=== PATIENT | female | born 1950 | race Caucasian/White ===

== ENCOUNTER 2018-08-23 07:31 | Day surgery (SDC) | payer MEDICARE ==
[~2018-08-23] VITALS: Ht 160 cm; Wt 70.3 kg
[~2018-08-23 07:31] MED LIST: CVS LUTEIN 401 EACH PO; EYE HEALTH ADU1 EACH PO; Lutein 15 MG S1 EACH PO; STRESS FORMULA1 EAC1 PO
--- NOTE | 2018-08-23 07:59 | NUR ---
Ambulatory in Day Surgery History, Chart, Medications and Allergies reviewed before start of procedure.Lungs clear T/O to Auscultation. Patient confirms NPO status and agrees with scheduled surgery. Patient reports completing Chlorhexadine shower X2 prior to admission to hospital.Surgical site prepped with 2% Chlorhexidine cloth wipe.
--- NOTE | 2018-08-23 13:07 | NUR ---
PT STATES SHE IS FEELING A LITTLE BETTER AFTER MEDICATION. REQ TO REST FOR A WHILE LONGER PRIOR TO DISCHARGE. FAMILY UPDATED. VSS.
--- NOTE | 2018-08-23 13:09 | NUR ---
PRESCRIPTION FOR ODT ZOFRAN FROM DR. ABDIAS BRUNNER.
--- NOTE | 2018-08-23 14:18 | NUR ---
FEELING MUCH BETTER, WENT FAMILY AT BEDSIDE. WENT OVER DC INSTRUCTIONS WITH PT/FAMILY. VERBALIZED UNDERSTANDING. DRESSED WITH ASSIST. Discharge instructions reviewed with patient. Patient verbalizes understanding. Copy given to patient to take home. Discharged via wheelchair to private car for ride home.
== END 2018-08-23 22:42 | disposition home or self-care (01) ==
LOC: ORSCMMR 07:31 → ORD 09:00 → ORSCMMR 22:42
PROVIDERS: Surgery
PROC: B5131ZA Fluoroscopy of Right Jugular Veins using Low Osmolar Contrast, Guidance (ICD-10-PCS; principal; 2018-08-23 09:00)
PROC: 05HM33Z Insertion of Infusion Device into Right Internal Jugular Vein, Percutaneous Approach (ICD-10-PCS; principal; 2018-08-23 09:00)
DX: C50.512 Malignant neoplasm of lower-outer quadrant of left female breast (principal)
CPT/HCPCS: 77001; 93005; 93010; C1788; J0690; J1100; J1642; J2250; J2405; J2765; J3010; J7120

== ENCOUNTER 2018-09-02 09:09 | Day surgery (SDC) | payer MEDICARE ==
[2018-09-02] MEDS ORDERED: LIDOCAINE-PRIL1 EACH TOP (10:22)
[2018-09-02] MEDS ORDERED: METO10 PO (10:22)
[2018-09-02] MEDS ORDERED: ONDA8 PO (10:22)
[2018-09-02] MEDS ORDERED: DEXA4 PO (10:23)
== END 2018-09-02 10:32 | disposition home or self-care (01) ==
LOC: ATC 09:09
DX: C50.512 Malignant neoplasm of lower-outer quadrant of left female breast (principal); Z17.0 Estrogen receptor positive status [ER+]
CPT/HCPCS: 96360; J1642; J7030

== ENCOUNTER 2018-11-23 21:44 | Emergency (ER) | payer MEDICARE ==
[~2018-11-23] VITALS: Ht 160 cm; Wt 71.2 kg
[~2018-11-23 21:44] MED LIST changes: +DEXA4 PO; +LIDOCAINE-PRIL1 EACH TOP; +METO10 PO; +ONDA8 PO
[2018-11-23] MEDS ORDERED: LEVO750 PO (22:36)
[2018-11-23 23:33] LABS: Source, Urine Clean Catch
[2018-11-23 23:36] LABS: BASOPHILS ABSOLUTE AUTO 0.01 K/mm3 (0.00-0.23); BASOPHILS PERCENT AUTO 0 % (0-2); EOSINOPHILS ABSOLUTE AUTO 0.03 K/mm3 (0.00-0.68); EOSINOPHILS PERCENT AUTO 1 % (0-6); Hematocrit 28.4 % (33.0-51.0); Hemoglobin 9.6 g/dL (11.5-16.0); IMMATURE GRAN ABSOLUTE AUTO 0.01 K/mm3 (0.00-0.10); IMMATURE GRAN PERCENT AUTO 0 % (0-1); LYMPHOCYTES ABSOLUTE AUTO 0.69 K/mm3 (0.84-5.20); LYMPHOCYTES PERCENT AUTO 19 % (21-46); MONOCYTES ABSOLUTE AUTO 0.27 K/mm3 (0.16-1.47); MONOCYTES PERCENT AUTO 7 % (4-13); Mean Corpuscular HGB 32.1 pg (26.0-34.0); Mean Corpuscular HGB Conc 33.8 g/dL (31.5-36.5); Mean Corpuscular Volume 95 fL (80-100); Mean Platelet Volume 8.7 fL (9.1-12.4); NEUTROPHILS ABSOLUTE AUTO 2.68 K/mm3 (1.96-9.15); NEUTROPHILS PERCENT AUTO 73 % (41-73); Platelet Count 193 K/mm3 (150-400); RDW Coefficient Variation 15.9 % (11.7-14.2); RDW Standard Deviation 55.4 fL (35.1-46.3); Red Blood Cell Count 2.99 M/mm3 (3.80-5.20); White Blood Cell Count 3.69 K/mm3 (4.00-11.30)
[2018-11-23 23:42] LABS: Appearance, Urine Clear (Clear); Bilirubin, Urine Neg (Neg); Blood, Urine Neg (Neg); Color, Urine Pale Yellow (P-Yellow); Glucose Qualitative, Urine Neg (Neg); Ketones, Urine Neg (Neg); Leukocyte Esterase, Urine Neg (Neg); Nitrite, Urine Neg (Neg); Protein, Urine Neg (Neg); Urobilinogen, Urine NORM (Normal); pH, Urine 6.5 (5.0-8.0)
[2018-11-23 23:54] LABS: Alanine Aminotransfer (ALT/SGP 35 U/L (12-78); Albumin, Blood 3.5 g/dL (3.4-5.0); Albumin/Globulin Ratio 1.2 (0.8-1.8); Alk Phos 119 U/L (50-136); Anion Gap 7 mmol/L (6-16); Aspartate Aminotrans (AST/SGOT 19 U/L (12-37); Bilirubin, Total 0.4 mg/dL (0.1-1.0); Blood Urea Nitrogen 15 mg/dL (8-24); Bun/Creatinine Ratio 22.8 (12.0-20.0); CO2, Blood 25 mmol/L (21-32); Calcium, Blood 8.6 mg/dL (8.5-10.1); Chloride, Blood 106 mmol/L (98-108); Creatinine, Blood 0.66 mg/dL (0.40-1.00); Globulin, Blood 2.8 g/dL (2.2-4.0); Glomerular Filtration Rate >60 (60-); Glucose, Blood 99 mg/dL (70-99); Potassium, Blood 3.7 mmol/L (3.5-5.5); Sodium, Blood 138 mmol/L (136-145); Total Protein, Blood 6.3 g/dL (6.4-8.2)
[2018-11-24 00:15] LABS: Influenza A Negative (NEGATIVE); Influenza B Negative (NEGATIVE)
== END 2018-11-24 01:25 | disposition home or self-care (01) ==
LOC: ER 21:44
PROVIDERS: Emergency Medicine
DX: C50.919 Malignant neoplasm of unspecified site of unspecified female breast (principal); Z91.040 Latex allergy status; Z88.2 Allergy status to sulfonamides; Z88.8 Allergy status to other drugs, medicaments and biological substances; Z91.018 Allergy to other foods; Z91.041 Radiographic dye allergy status; Z79.899 Other long term (current) drug therapy; Z79.52 Long term (current) use of systemic steroids
CPT/HCPCS: 71046; 80053; 81003; 85025; 87804; 99283-25

== ENCOUNTER 2019-02-09 08:21 | Day surgery (SDC) | payer MEDICARE ==
[~2019-02-09 08:21] MED LIST changes: +LEVO750 PO
[2019-03-11] MEDS ORDERED: OMEP20ER PO (13:40)
== END 2019-02-09 23:22 | disposition home or self-care (01) ==
LOC: MOI US 08:21
PROC: BH41ZZZ Ultrasonography of Left Breast (ICD-10-PCS; principal; 2019-02-09)
PROC: BH47ZZZ Ultrasonography of Upper Extremity (ICD-10-PCS; 2019-02-09)
DX: C50.512 Malignant neoplasm of lower-outer quadrant of left female breast (principal); C77.3 Secondary and unspecified malignant neoplasm of axilla and upper limb lymph nodes
CPT/HCPCS: 19285; 19286; 77065; G0279

== ENCOUNTER 2019-02-16 07:50 | Day surgery (SDC) | payer MEDICARE ==
[~2019-02-16] VITALS: Ht 160 cm; Wt 70.8 kg
[2019-02-16] MEDS ORDERED: GABA300 PO (10:18)
--- NOTE | 2019-02-16 10:37 | NUR ---
02/16/19 Claudy Jo LATE ENTRY-PATIENT WENT TO [facility] AND PATIENT DID NOT GET HERE UNTIL 15 MINUTES BEFORE PROCEDURE START. PATIENT COULD NOT GET HER RING OFF OF LEFT HAND BUT STAFF WAS ABLE TO GET IF OFF WITH STRING. SMALL CUT ON LEFT RING FINGER FROM RING REMOVAL. RING GIVEN TO .
--- NOTE | 2019-02-16 14:35 | NUR ---
02/16/19 1435 Nathalia Verma PT. OPENS EYES TO VOICE & THEN RIGHT BACK TO SLEEP. ORAL AIRWAY REMOVED 1434. WHEN ORAL AIRWAY REMOVED PT. LOOK LIKE SHE WAS GAGGING, PT. ORALLY SUCTIONED & THEN PT. BACK TO SLEEP.
--- NOTE | 2019-02-16 16:07 | NUR ---
02/16/19 1607 Nathalia Verma PT. VERBALIZES HAVING LEFT BREAST NIPPLE PAIN. BREAST BINDER INTACT. NO DRAINAGE ON GAUZE OBSERVED. HENRY DRAIN, DRAINING BRIGHT RED DRAINGE. NAUSEA GONE. WARM BLANKET GIVEN TO PT. ICE CHIPS ALSO AT PT. SIDE.
[2019-03-11] MEDS ORDERED: OMEP20ER PO (13:40)
== END 2019-02-16 19:09 | disposition home or self-care (01) ==
LOC: ORSCSDS 07:50 → NM 09:00 → RAD 10:15 → ORSCSDS 19:09
PROVIDERS: Surgery
PROC: 0HBU0ZZ Excision of Left Breast, Open Approach (ICD-10-PCS; principal; 2019-02-16 10:00)
PROC: 07B60ZX Excision of Left Axillary Lymphatic, Open Approach, Diagnostic (ICD-10-PCS; principal; 2019-02-16 10:00)
DX: C50.512 Malignant neoplasm of lower-outer quadrant of left female breast (principal); C77.3 Secondary and unspecified malignant neoplasm of axilla and upper limb lymph nodes
CPT/HCPCS: 38792; 76098; 88305; 88307; 88331; A9520; J0690; J1642; J2250; J2405; J2704; J2765; J3010; J7120; Q9968

== ENCOUNTER 2019-03-13 05:57 | Day surgery (SDC) | payer MEDICARE ==
[~2019-03-13] VITALS: Ht 157.5 cm; Wt 71.5 kg
[~2019-03-13 05:57] MED LIST changes: +GABA300 PO; +OMEP20ER PO
--- NOTE | 2019-03-13 07:31 | NUR ---
0630- History, Chart, Medications and Allergies reviewed before start of procedure. Patient confirms NPO status and agrees with scheduled surgery.
--- NOTE | 2019-03-13 10:09 | NUR ---
DISCUSSED PLAN TO ACCESS AND FLUSH MEDIPORT AT THIS VISIT SO THAT PATIENT CAN CANCEL HER [facility] APPOINTMENT FOR FLUSH COMING UP. DR CALERO WROTE AN ORDER, OK TO FLUSH. WILL FLUSH WITH 5 ML OF 100 UNITS/ML HEPARIN AFTER ACCESSING. SAMMIE JEFFREY RN ASSUMING CARE OF PATIENT, REPORT GIVEN.
--- NOTE | 2019-03-13 10:54 | NUR ---
PORT ACCESS THE PATIENT'S PORT WAS ACCESSED AND FLUSHED AND HEPARINE, 100 UNITS PER ML, WAS PUT INTO THE PORT AND IT THEN DEACCESSED. THE PATIENT TOLERATED IT WELL.
--- NOTE | 2019-03-13 11:15 | NUR ---
Patient up to Ambulate independently. Gait steady. Discharge instructions reviewed with patient. Patient verbalizes understanding. Copy given to patient to take home. Patient States Post-Procedure ride home has been arranged. Discharged via wheelchair to private car for ride home. ALL BELONGINGS RETURNED TO PATIENT. BREAST BINDER STRAPS SENT HOME WITH PATIENT PACKET.
== END 2019-03-13 22:46 | disposition home or self-care (01) ==
LOC: ORSCMMR 05:57 → ORD 07:30 → ORSCMMR 22:46
PROVIDERS: Surgery
PROC: 0HBU0ZZ Excision of Left Breast, Open Approach (ICD-10-PCS; principal; 2019-03-13 07:30)
DX: C50.512 Malignant neoplasm of lower-outer quadrant of left female breast (principal); C77.3 Secondary and unspecified malignant neoplasm of axilla and upper limb lymph nodes; K21.9 Gastro-esophageal reflux disease without esophagitis; Z79.899 Other long term (current) drug therapy
CPT/HCPCS: 88307; J0690; J1100; J1642; J2405; J2704; J3010; J7120

== ENCOUNTER 2020-08-06 08:45 | Day surgery (SDC) | payer MEDICARE ==
[~2020-08-06] VITALS: Ht 160 cm; Wt 66.2 kg
[~2020-08-06 08:45] MED LIST changes: +ANAS1 PO; +EYE CAPS PO
[2020-08-06] MEDS ORDERED: HYDCHL25 PO (09:01)
[2020-08-06] MEDS ORDERED: LETR2.5 PO (09:02)
--- NOTE | 2020-08-06 09:25 | NUR ---
Ambulatory in Day Surgery History, Chart, Medications and Allergies reviewed before start of procedure. Lungs clear T/O to Auscultation. Pre-Op teaching done. Pt verbalizes understanding.
--- NOTE | 2020-08-06 17:55 | NUR ---
KAIDEN PAD CHANGED X2 SINCE ARRIVAL FROM PACU. SMALL AMOUNT SEROSANGUINOUS DRAINAGE. PT WITH SLIGHT NAUSEA. OOB X1 AND INCREASE IN NAUSEA AND REPORT HEAD FELT "FULL" WITH ACTIVITY
--- NOTE | 2020-08-06 18:15 | NUR ---
SPOKE WITH DR SOLANGE LUIS REGARDING PT. PER DR LUIS PLAN WILL BE FOR PATIENT TO REMAIN HERE OVERNIGHT AND WILL BE SEEN IN AM. SPOKE WITH PATIENT AND HER SON REGARDING THIS PLAN
--- NOTE | 2020-08-07 06:43 | NUR ---
SUMMARY PT VERB MINIMAL PAIN TONIGHT.MOVES WELL IN BED. WATSON PATENT OF CLR YELLOW THIS AM. PT TOLERATING PO.SCANT VAG BLEED.
--- NOTE | 2020-08-07 13:37 | NUR ---
CALLED DR LUIS'S OFFICE TO REQUEST PRESCRIPTION FOR ZOFRAN.
[2020-08-07] MEDS ORDERED: ACET325 PO (15:05)
[2020-08-07] MEDS ORDERED: OXAYDO5 M1 PO (15:06)
[2020-08-07] MEDS ORDERED: IBUP600 PO (15:06)
--- NOTE | 2020-08-07 15:15 | NUR ---
DISCHARGING PT PASSED VOIDING TRIAL. HAD N/V THIS AM BUT HAS TOLERATED PO INTAKE THIS AFTERNOON. PAIN TOLERABLE. PT DESIRES TO GO HOME. DAUGHTER AT BEDSIDE. DC PAPERWORK REVIEWED; PT VERBALIZED UNDERSTANDING. DC PAPERWORK SIGNED, PT DRESSED AND AWAITING RIDE.
--- NOTE | 2020-08-07 15:47 | NUR ---
PT LEFT UNIT IN WC ACCOMPANIED BY DAUGHTER W/POSSESSIONS AND DC PAPERWORK IN HAND TO RIDE AWAITING OUTSIDE.
== END 2020-08-07 15:50 | disposition home or self-care (01) ==
LOC: ORSCMMR 08:45 → EDSTATUS 10:00 → PRE IP 10:00 → SURS 14:49 → ORSCMMR 08-07 15:50 → SURS 08-07 15:50
PROVIDERS: Obstetrics & Gynecology
PROC: 0UT97ZZ Resection of Uterus, Via Natural or Artificial Opening (ICD-10-PCS; principal; 2020-08-06 10:00)
PROC: 0JQC0ZZ Repair Pelvic Region Subcutaneous Tissue and Fascia, Open Approach (ICD-10-PCS; 2020-08-06 10:00)
PROC: 0TSD0ZZ Reposition Urethra, Open Approach (ICD-10-PCS; 2020-08-06 10:00)
DX: N81.2 Incomplete uterovaginal prolapse (principal); N39.3 Stress incontinence (female) (male); N95.2 Postmenopausal atrophic vaginitis; E78.5 Hyperlipidemia, unspecified; I10 Essential (primary) hypertension; N88.8 Other specified noninflammatory disorders of cervix uteri; D25.9 Leiomyoma of uterus, unspecified; Z79.899 Other long term (current) drug therapy; Z85.3 Personal history of malignant neoplasm of breast; Z85.828 Personal history of other malignant neoplasm of skin; Z88.2 Allergy status to sulfonamides; Z91.041 Radiographic dye allergy status
CPT/HCPCS: 88307; 94762; A9270; C1771; J0690; J1100; J1885; J2250; J2405; J2704; J3010; J7120

== ENCOUNTER → 2020-10-15 | Outpatient (CLI) | payer MEDICARE ==
[~2020-10-15] MED LIST changes: +ACET325 PO; +HYDCHL25 PO; +IBUP600 PO; +LETR2.5 PO; +OXAYDO5 M1 PO
[2020-10-16 09:49] LABS: Candida species (DNA Probe) Negative (NEGATIVE); G. vaginalis (DNA Probe) Negative (NEGATIVE); T. vaginalis (DNA Probe) Negative (NEGATIVE)
== END | disposition home or self-care (01) ==
LOC: LAB SHORT 15:30 → LAB 15:30
PROVIDERS: Obstetrics & Gynecology
DX: N76.0 Acute vaginitis (principal)
CPT/HCPCS: 87480; 87510; 87660

== ENCOUNTER → 2021-06-11 | Outpatient (CLI) | payer MEDICARE | END | disposition home or self-care (01) | LOC: LAB SHORT 11:25 → LAB 11:25 | DX: D48.5 Neoplasm of uncertain behavior of skin (principal); L82.1 Other seborrheic keratosis | CPT/HCPCS: 88305 ==

== ENCOUNTER 2022-01-14 09:07 | Day surgery (SDC) | payer MEDICARE ==
[~2022-01-14] VITALS: Ht 162.6 cm; Wt 65.3 kg
--- NOTE | 2022-01-14 11:03 | NUR ---
01/14/22 1103 EMILY CASTELLANO PT MEDICATED PRIOR TO ENTERING OR, WITH 4MG ZOFRAN PER MD ORDER. PT WITH HX OF VOMITING POST PROCEDURE AND WRETCHING NOTED ON PAST COLONOSCOPE REPORT. DURING PROCEDURE. PT DID RETCH AND VOMIT AND SUCTIONING WAS USED. PT WAS THEN BOLUSED AGAIN WITH PROPOFOL TO RE- INDUCE SEDATION. SCOPE WAS CHANGED AT THAT TIME WELL DUE TO A BROKEN OR MALFUNCTIONING SCOPE. RESTART PROCEDURE.
== END 2022-01-14 11:41 | disposition home or self-care (01) ==
LOC: ORSCSDS 09:07
PROVIDERS: Surgery
PROC: 0DJD8ZZ Inspection of Lower Intestinal Tract, Via Natural or Artificial Opening Endoscopic (ICD-10-PCS; principal; 2022-01-14 10:15)
DX: Z12.11 Encounter for screening for malignant neoplasm of colon (principal); Z80.0 Family history of malignant neoplasm of digestive organs; K57.30 Diverticulosis of large intestine without perforation or abscess without bleeding; Z79.899 Other long term (current) drug therapy
CPT/HCPCS: J2405; J2704

== ENCOUNTER → 2022-11-24 | Outpatient (CLI) | payer OTHER | LOC: LAB SHORT 12:55 → PLD 12:55 | DX: L98.9 Disorder of the skin and subcutaneous tissue, unspecified (principal) | CPT/HCPCS: 88305; 88312 ==

== ENCOUNTER → 2023-09-20 | Outpatient (CLI) | payer OTHER ==
[2023-09-20 16:53] LABS: Source, Urine Clean Catch
[2023-09-20 19:13] LABS: Appearance, Urine Clear (Clear); Bilirubin, Urine Neg (Neg); Blood, Urine 3+ (Neg); Color, Urine Yellow (P-Yellow); Glucose Qualitative, Urine Neg (Neg); Ketones, Urine Neg (Neg); Leukocyte Esterase, Urine Neg (Neg); Nitrite, Urine Neg (Neg); Protein, Urine Neg (Neg); Specific Gravity, Urine 1.005 (1.003-1.022); Urobilinogen, Urine NORM (Normal)
[2023-09-20 19:21] LABS: Bacteria Rare /hpf; Squamous Epithelial Cells Rare /hpf (Few); White Blood Cells, Urine 0-2 /hpf (0-5)
== END ==
LOC: LAB SHORT 16:50 → LAB 16:50
PROVIDERS: Obstetrics & Gynecology
DX: R32 Unspecified urinary incontinence (principal)
CPT/HCPCS: 81001; 88108

== ENCOUNTER → 2024-07-24 | Outpatient (CLI) | payer OTHER | LOC: LAB SHORT 09:32 → LAB 09:32 | DX: L08.0 Pyoderma (principal) | CPT/HCPCS: 87070; 87147; 87205 ==